=== PATIENT | female | born 1980 | race African-American/Black ===

== ENCOUNTER 2017-01-22 09:56 | Observation (INO) | payer OTHER ==
[2017-01-22] VITALS (13 sets, daily range): BP systolic 89–122; BP diastolic 41–78; PULSE 88–131; RESP 17–21; TEMP 98–99.4; O2SAT 98–100
[~2017-01-22] VITALS: Ht 170.2 cm; Wt 78.0 kg
[2017-01-22] MEDS ORDERED: PREN29TA PO (10:04)
[2017-01-22] MEDS ORDERED: FERR325C PO (10:09)
[2017-01-22] MEDS ORDERED: VITA250T3 PO (10:09)
[2017-01-22] MEDS ORDERED: SACC1CAP3 PO (10:09)
[2017-01-22] MEDS ORDERED: SODIUM CHLOR 0.9% 1000 ML INJ 1,000 ML IV ONE (10:15)
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
[2017-01-22 10:28] LABS: AUTOMATED NEUTROPHIL # 14.9 TH/MM3 (1.8-7.7); BASOPHIL % 0.3 % (0.0-2.0); EOSINOPHIL # 0.1 TH/MM3 (0-0.4); EOSINOPHIL % 0.4 % (0.0-4.0); LYMPH % 8.3 % (9.0-44.0); LYMPHOCYTE # 1.5 TH/MM3 (1.0-4.8); MEAN CELL VOLUME 95.7 FL (80.0-100.0); MEAN CORPUSCULAR HEMOGLOBIN 31.5 PG (27.0-34.0); MEAN CORPUSCULAR HGB CONC 32.9 % (32.0-36.0); MONO % 6.2 % (0.0-8.0); NEUT % 84.8 % (16.0-70.0); PLATELET COUNT 226 TH/MM3 (150-450); RED BLOOD COUNT 3.45 MIL/MM3 (4.00-5.30); RED CELL DISTRIBUTION WIDTH 16.5 % (11.6-17.2); WHITE BLOOD COUNT 17.6 TH/MM3 (4.0-11.0)
[2017-01-22 10:33] LABS: HEMO FLAGS AUTO DIFF
[2017-01-22 10:51] LABS: BICARBONATE 23.5 MEQ/L (21.0-32.0); POTASSIUM 4.1 MEQ/L (3.5-5.1)
[2017-01-22 11:19] LABS: BANDS 7 % (0-6); EOSINOPHILS 1 % (0-4); METAMYELOCYTES 1 % (0-1); MYELOCYTES 2 % (0-0); NEUTROPHIL # MANUAL DIFF 15.3 TH/MM3 (1.8-7.7); POLYS (SEG NEUTROPHILS) 77 % (16-70); SCAN/DIFF FINAL DIFF MANUAL; WBC DIFF SAMPLE 100
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
[2017-01-23 04:00] VITALS: BP 90/62; PULSE 90; RESP 18; TEMP 98.1
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
[2017-01-23 08:02] VITALS: BP 97/67; PULSE 88; RESP 20; TEMP 98.6
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
== END 2017-01-23 13:49 | disposition home or self-care (01) ==
LOC: NEPC 09:56 → H2EA 13:03
PROVIDERS: ADMIT Obstetrics & Gynecology; ATTEND Obstetrics & Gynecology
DX: O09.523 Supervision of elderly multigravida, third trimester (principal); V43.62XA Car passenger injured in collision with other type car in traffic accident, initial encounter; Y92.410 Unspecified street and highway as the place of occurrence of the external cause; Z3A.31 31 weeks gestation of pregnancy
CPT/HCPCS: 76705; 76816; 76819; 80048; 83030; 85007; 85027; 86850; 86900; 86901; 96360; 99285; G0378; J7030; 59025